=== PATIENT | male | born 1985 | race Caucasian/White ===

== ENCOUNTER 2022-01-11 02:46 | Emergency (ER) | payer MEDICAID ==
[~2022-01-11] VITALS: Ht 162.6 cm; Wt 65.0 kg
[2022-01-11] MEDS ORDERED: IBUPROFEN 600MG TABLET PO ONE (03:15)
[2022-01-11 03:45] VITALS: BP 126/74
== END 2022-01-11 03:45 | disposition home or self-care (01) ==
LOC: ER 02:46
DX: S20.319A Abrasion of unspecified front wall of thorax, initial encounter (principal); F17.200 Nicotine dependence, unspecified, uncomplicated; X58.XXXA Exposure to other specified factors, initial encounter; Y93.89 Activity, other specified; Y92.89 Other specified places as the place of occurrence of the external cause; Y99.8 Other external cause status
CPT/HCPCS: 99283